=== PATIENT | male | born 1980 | race Caucasian/White ===

== ENCOUNTER 2019-09-05 04:13 | Emergency (ER) | payer SELFPAY ==
[~2019-09-05] VITALS: Ht 175.3 cm; Wt 70.0 kg
[~2019-09-05 04:13] MED LIST: CARB200T PO
[2019-09-05] MEDS ORDERED: CARBAMAZEPINE 100MG TABLET CHEW PO ONE (04:45)
[2019-09-05 04:50] VITALS: BP 107/68
== END 2019-09-05 05:37 | disposition home or self-care (01) ==
LOC: ER 04:13
DX: R56.9 Unspecified convulsions (principal); F10.10 Alcohol abuse, uncomplicated; Y90.9 Presence of alcohol in blood, level not specified; Z91.14 Patient's other noncompliance with medication regimen
CPT/HCPCS: 82962; 93005; 99283

== ENCOUNTER 2022-12-06 02:50 | Emergency (ER) | payer BC ==
[~2022-12-06] VITALS: Ht 172.7 cm; Wt 84.0 kg
[2022-12-06] MEDS ORDERED: ONDANSETRON HCL 4MG/2ML INJ IV STA (02:53)
[2022-12-06] MEDS ORDERED: LORAZEPAM 2MG/ML CPJ IV ONE (03:00)
[2022-12-06] MEDS ORDERED: SODIUM CHLORIDE 0.9% 1,000 ML IV ONE (03:00)
[2022-12-06 03:39] LABS: BASOPHILS % 0.4 % (0.0-2.0); EOSINOPHILS % 1.8 % (0.0-5.0); HEMATOCRIT. 44.1 % (42.0-52.0); HEMOGLOBIN. 14.7 g/dL (14.0-18.0); LYMPHOCYTES % 45.2 % (20.0-50.0); MEAN CORPUSCULAR HEMOGLOBIN 30.8 pg (28.0-32.0); MEAN CORPUSCULAR VOLUME 92.3 fL (80.0-94.0); MEAN PLATELET VOLUME 9.4 fl (7.4-10.4); MONOCYTES % 7.4 % (2.0-8.0); NEUTROPHILS % 45.2 % (40.0-76.0); PLATELET 205 x1000/uL (130-400); RED BLOOD CELL COUNT 4.78 mill/uL (4.7-6.1); RED CELL DISTRIBUTION WIDTH 13.3 % (11.6-14.6)
[2022-12-06 03:48] LABS: CHLORIDE 112 mEq/L (98-107)
[2022-12-06 03:57] LABS: ETHANOL BLOOD < 10 mg/dL
[2022-12-06] MEDS ORDERED: CARB200C7 MT (04:18)
[2022-12-06 04:32] VITALS: BP 121/75
== END 2022-12-06 04:53 | disposition home or self-care (01) ==
LOC: ER 02:50
DX: G40.909 Epilepsy, unspecified, not intractable, without status epilepticus (principal)
CPT/HCPCS: 36415; 71045; 80053; 80320; 85025; 96361; 96374; 96375; 99284; J2060; J2405; G0480

== ENCOUNTER 2023-05-20 02:45 | Emergency (ER) | payer BC ==
[~2023-05-20] VITALS: Ht 175.3 cm; Wt 74.0 kg
[~2023-05-20 02:45] MED LIST changes: +CARB200C7 MT
[2023-05-20 02:57] VITALS: TEMP 98.2; O2SAT 95
[2023-05-20] MEDS ORDERED: CARBAMAZEPINE 100MG TABLET CHEW PO ONE (03:00)
[2023-05-20 03:27] LABS: BASOPHILS % 0.5 % (0.0-2.0); HEMATOCRIT. 45.1 % (42.0-52.0); HEMOGLOBIN. 15.3 g/dL (14.0-18.0); LYMPHOCYTES % 48.6 % (20.0-50.0); MEAN CORPUSCULAR HEMOGLOBIN 31.5 pg (28.0-32.0); MEAN CORPUSCULAR VOLUME 92.5 fL (80.0-94.0); MEAN PLATELET VOLUME 9.6 fl (7.4-10.4); MONOCYTES % 5.9 % (2.0-8.0); PLATELET 203 x1000/uL (130-400); RED BLOOD CELL COUNT 4.88 mill/uL (4.7-6.1); RED CELL DISTRIBUTION WIDTH 13.3 % (11.6-14.6)
[2023-05-20 03:34] LABS: CHLORIDE 111 mEq/L (98-107); INDEX HEMOLYSI 2 (1-3); INDEX ICTERIC 1 (1-4); INDEX LIPEMIC 1 (1-3); SODIUM 138 mEq/L (136-145)
[2023-05-20 03:41] LABS: ALBUMIN 3.6 g/dL (3.4-5.0); CALCIUM 8.4 mg/dL (8.5-10.1); CARBON DIOXIDE 21 mEq/L (21-32); CREATININE 0.9 mg/dL (0.6-1.3); GLUCOSE 111 mg/dL (70-105); PROTEIN TOTAL 6.7 g/dL (6.0-8.3); UREA NITROGEN BLOOD 19 mg/dL (7-21)
[2023-05-20 03:42] LABS: ALANINE AMINOTRANSFERASE 29 IU/L (13-61); ASPARTATE AMINOTRANSFERASE 16 IU/L (15-37); BILIRUBIN TOTAL 0.2 mg/dL (0.1-1.0); ETHANOL BLOOD < 10 mg/dL (-10)
[2023-05-20] MEDS ORDERED: CARB200T MT (04:37)
[2023-05-20 05:15] VITALS: BP 120/70; PULSE 70; RESP 18
== END 2023-05-20 05:15 | disposition home or self-care (01) ==
LOC: ER 02:45
DX: R56.9 Unspecified convulsions (principal)
CPT/HCPCS: 36415; 80053; 80320; 85025; 99283; G0480

== ENCOUNTER 2024-04-14 03:54 | Emergency (ER) | payer BC ==
[~2024-04-14] VITALS: Ht 172.7 cm; Wt 73.0 kg
[~2024-04-14 03:54] MED LIST changes: +CARB200T MT
[2024-04-14 03:59] VITALS: O2SAT 99
[2024-04-14 04:59] LABS: BASOPHILS % 0.4 % (0.0-2.0); EOSINOPHILS % 2.3 % (0.0-5.0); HEMATOCRIT. 43.5 % (42.0-52.0); HEMOGLOBIN. 15.1 g/dL (14.0-18.0); LYMPHOCYTES % 37.1 % (20.0-50.0); MEAN CORPUSCULAR HEMOGLOBIN 32.1 pg (28.0-32.0); MEAN CORPUSCULAR HGB CONC 34.6 g/dL (31.0-37.0); MEAN CORPUSCULAR VOLUME 92.6 fL (80.0-94.0); MEAN PLATELET VOLUME 9.1 fl (7.4-10.4); MONOCYTES % 7.3 % (2.0-8.0); NEUTROPHILS % 52.9 % (40.0-76.0); PLATELET 207 x1000/uL (130-400); RED CELL DISTRIBUTION WIDTH 13.1 % (11.6-14.6); WHITE BLOOD COUNT 6.7 x1000/uL (4.5-11.0)
[2024-04-14 05:08] LABS: CARBON DIOXIDE 24 mEq/L (21-32); CHLORIDE 109 mEq/L (98-107); POTASSIUM 3.8 mEq/L (3.5-5.1); SODIUM 140 mEq/L (136-145)
[2024-04-14 05:09] LABS: CALCIUM 9.1 mg/dL (8.7-10.4)
[2024-04-14 05:14] LABS: CREATININE 0.9 mg/dL (0.6-1.3); GLUCOSE 107 mg/dL (70-105); UREA NITROGEN BLOOD 19 mg/dL (9-23)
[2024-04-14 05:50] LABS: ETHANOL BLOOD < 10 mg/dL (<10)
[2024-04-14 07:40] VITALS: BP 136/78; PULSE 64; RESP 13
== END 2024-04-14 07:53 | disposition home or self-care (01) ==
LOC: ER 03:57
DX: R56.9 Unspecified convulsions (principal)
CPT/HCPCS: 36415; 80048; 80156; 80320; 82962; 85025; 99283; G0480